=== PATIENT | female | born 1955 | race African-American/Black ===

== ENCOUNTER 2019-04-12 08:26 | Inpatient (IN) ==
[2019-04-12] MEDS ORDERED: ALUM/MAG/SIMETH/LIDO VISC 1:1 30 ML BOTTLE PO STA (09:43)
[2019-04-12] MEDS ORDERED: ASPIRIN 325 MG TABLET PO STA (09:43)
[2019-04-12] MEDS ORDERED: NITROGLYCERIN 2% OINT 1 INCH/GM PACK TOP STA (09:43)
[2019-04-12] MEDS ORDERED: ONDANSETRON 4 MG/2 ML VIAL IV STA (09:43)
[2019-04-12 09:56] LABS: Basophils # 0.1 10*3/uL (0.0-0.2); Basophils % 0.7 % (0.0-0.8); Eosinophils # 0.1 10*3/uL (0.0-0.87); Eosinophils % 1.5 % (0.00-10.9); Hematocrit 35.1 VOL% (35.7-47.0); Hemoglobin 11.7 GM/DL (12.0-16.0); Immature Granulocytes % 0.3 %; Immature Granulocytes Absolute 0.02 #; Lymphocytes # 2.1 10*3/uL (1.4-4.0); Lymphocytes % 30.6 % (21.3-54.2); Mean Corpuscular HGB Conc 33.3 GM/DL (32-36); Mean Corpuscular Volume 90.5 FL (87-102); Mean Platelet Volume 9.4 FL (9.6-12.0); Monocytes % 10.9 % (1.7-12.7); Platelet Count 278 T/CUMM (130-400); Red Blood Count 3.88 MC/CUMM (3.8-5.5); Red Cell Distribution Width 12.5 % (9.3-17.3); White Blood Count 6.8 T/CUMM (4-12)
[2019-04-12 10:05] LABS: PT Patient Result 10.7 SECS (9.6-12.2)
[2019-04-12 10:39] LABS: Albumin 3.6 G/DL (3.4-5.0); Bilirubin,Total 0.5 MG/DL (0.2-1.0); Thyroid Stimulating Hormone 45.8 uIU/ml (0.358-3.74); Total Protein 8.2 G/DL (6.4-8.3)
[2019-04-12 10:43] LABS: Calcium 5.3 MG/DL (8.5-10.1)
[2019-04-12] MEDS ORDERED: CALCIUM GLUCONATE 1,000 MG in SODIUM CHLORIDE 0.9% 100 ML IV ONE (10:46)
[2019-04-12] MEDS ORDERED: MAGNESIUM SULF RIDER 2 GM in PREMIX 1 EACH IV STA (10:46)
[2019-04-12] MEDS ORDERED: CALCIUM GLUCONATE 1,000 MG/10 ML VIAL IV ONE (10:53)
[2019-04-12 10:59] LABS: Apearance,Urine CLEAR (Clear); Urine Color Yellow (Yellow)
[2019-04-12 11:00] LABS: Bacteria,Urine Occasional /HPF (Few); Bilirubin,Urine Negative (Negative); Blood, Urine Negative (Negative); Glucose,Urine (UA) Negative (Negative); Ketones,Urine Negative (Negative); Mucus,Urine Occasional /LPF (Occasional); Nitrite,Urine Negative (Negative); Protein,Urine Negative; Squamous Epithelial Cell,Urine Occasional /HPF (0-10); Urine Urobilinogen < 2.0 EU/DL (0.2-1.0); WBC,Urine <1 /HPF (0-6)
[2019-04-12 11:05] LABS: Barbiturates Screen,Urine Negative (Negative); Benzodiazepines Screen,Urine Negative (Negative); Cannabinoid Screen,Urine Positive (Negative); Opiate Screen,Urine Negative (Negative); Phencyclidine Screen,Urine Negative (Negative)
[2019-04-12] MEDS ORDERED: MORPHINE 4 MG/1 ML VIAL IV PRN (13:08)
[2019-04-12] MEDS ORDERED: ACETAMINOPHEN 325 MG TABLET PO PRN (13:08)
[2019-04-12] MEDS ORDERED: GLUCAGON 1 MG VIAL IM PRN (13:08)
[2019-04-12] MEDS ORDERED: ONDANSETRON 4 MG/2 ML VIAL IV PRN (13:08)
[2019-04-12] MEDS ORDERED: DEXTROSE 50% 25 GM/50 ML VIAL IV PRN (13:08)
[2019-04-12] MEDS: NITROGLYCERIN 2% OINT 1 INCH/GM PACK TOP SCH ×2 (13:27→17:53)
[2019-04-12] MEDS: INSULIN REGULAR 100 UNIT/ML SUBCUT SCH ×2 (13:27→17:50)
[2019-04-12] MEDS ORDERED: MAGNESIUM SULF RIDER 2 GM in PREMIX 1 EACH IV ONE (15:29)
[2019-04-12] MEDS: SODIUM CHLORIDE 0.9% 1,000 ML IV SCH (15:32)
[2019-04-12] MEDS: metFORMIN 500 MG TABLET PO SCH (20:08)
[2019-04-12] MEDS: DOCUSATE SODIUM 100 MG CAPSULE PO SCH (20:09)
[2019-04-12] MEDS: ENOXAPARIN 80 MG/0.8 ML SYRINGE SUBCUT SCH (20:09)
[2019-04-13] MEDS: INSULIN REGULAR 100 UNIT/ML SUBCUT SCH ×4 (00:43→17:33)
[2019-04-13] MEDS: NITROGLYCERIN 2% OINT 1 INCH/GM PACK TOP SCH ×4 (00:48→18:55)
[2019-04-13 05:57] LABS: Basophils # 0.1 10*3/uL (0.0-0.2); Basophils % 0.7 % (0.0-0.8); Eosinophils # 0.2 10*3/uL (0.0-0.87); Eosinophils % 2.3 % (0.00-10.9); Hematocrit 31.1 VOL% (35.7-47.0); Hemoglobin 10.2 GM/DL (12.0-16.0); Immature Granulocytes % 0.3 %; Immature Granulocytes Absolute 0.02 #; Lymphocytes # 1.8 10*3/uL (1.4-4.0); Lymphocytes % 24.1 % (21.3-54.2); Mean Corpuscular HGB Conc 32.8 GM/DL (32-36); Mean Corpuscular Volume 92.3 FL (87-102); Mean Platelet Volume 9.4 FL (9.6-12.0); Monocytes % 12.7 % (1.7-12.7); Neutrophils % 59.9 % (38.7-73.9); Platelet Count 263 T/CUMM (130-400); Red Blood Count 3.37 MC/CUMM (3.8-5.5); Red Cell Distribution Width 12.4 % (9.3-17.3); White Blood Count 7.4 T/CUMM (4-12)
[2019-04-13 06:40] LABS: Alanine Aminotransferase 11 U/L (13-56); Albumin 2.7 G/DL (3.4-5.0); Alkaline Phosphatase 89 U/L (45-117); Aspartate Amino Transferase 16 U/L (0-37); Bilirubin,Total < 0.39 MG/DL (0.2-1.0); Blood Urea Nitrogen 18 MG/DL (7-18); Estimated Glom Filtration Rate 53 ML/MIN; Glucose 124 MG/DL (74-106); HDL Cholesterol 36 MG/DL (40-60); Osmolality,Calculated 275.8 MOS/KG (273-304); Risk Ratio 6.17; Total Protein 7.1 G/DL (6.4-8.3); Triglycerides 112 MG/DL (2-150); VLDL CHOLESTEROL 22.4 MG/DL
[2019-04-13 06:44] LABS: Calcium 5.7 MG/DL (8.5-10.1)
[2019-04-13] MEDS ORDERED: CALCIUM (CARBONATE)/VITAMIN D 600 MG-400 UNIT TABLET PO SCH (09:00)
[2019-04-13] MEDS ORDERED: SIMVASTATIN 20 MG TABLET PO SCH (09:00)
[2019-04-13] MEDS ORDERED: LEVOTHYROXINE 112 MCG TABLET PO SCH (09:00)
[2019-04-13] MEDS: CYANOCOBALAMIN 500 MCG TABLET PO SCH (09:03)
[2019-04-13] MEDS: SODIUM CHLORIDE 0.9% 1,000 ML IV SCH ×2 (09:04→20:45)
[2019-04-13] MEDS: metFORMIN 500 MG TABLET PO SCH ×2 (09:04→20:46)
[2019-04-13] MEDS: ENOXAPARIN 80 MG/0.8 ML SYRINGE SUBCUT SCH ×2 (09:04→20:45)
[2019-04-13] MEDS: LEVOTHYROXINE 137 MCG TABLET PO SCH (09:04)
[2019-04-13] MEDS: LOSARTAN 50 MG TABLET PO SCH (09:04)
[2019-04-13] MEDS: ASPIRIN EC 325 MG TABLET PO SCH (09:04)
[2019-04-13] MEDS: DOCUSATE SODIUM 100 MG CAPSULE PO SCH ×2 (09:04→20:47)
[2019-04-13] MEDS: PANTOPRAZOLE 40 MG VIAL IV SCH (09:05)
[2019-04-13] MEDS: CALCIUM (CARBONATE)/VITAMIN D 600 MG-400 UNIT TABLET PO SCH (20:46)
[2019-04-14] MEDS: INSULIN REGULAR 100 UNIT/ML SUBCUT SCH ×4 (01:07→18:19)
[2019-04-14] MEDS: NITROGLYCERIN 2% OINT 1 INCH/GM PACK TOP SCH ×2 (01:12→06:33)
[2019-04-14 05:42] LABS: Albumin 2.7 G/DL (3.4-5.0); Bilirubin,Total 1.1 MG/DL (0.2-1.0); Osmolality,Calculated 282.3 MOS/KG (273-304)
[2019-04-14 05:45] LABS: Calcium 5.5 MG/DL (8.5-10.1)
[2019-04-14 05:47] LABS: Parathyroid Hormone Intact 21.6 PG/ML (18.4-80.1)
[2019-04-14] MEDS ORDERED: CALCIUM GLUCONATE 1,000 MG in SODIUM CHLORIDE 0.9% 100 ML IV ONE (06:16)
[2019-04-14] MEDS ORDERED: ENOXAPARIN 40 MG/0.4 ML SYRINGE SUBCUT SCH (09:00)
[2019-04-14] MEDS ORDERED: METOPROLOL TARTRATE 25 MG TABLET PO SCH (09:00)
[2019-04-14] MEDS: SODIUM CHLORIDE 0.9% 1,000 ML IV SCH (10:55)
[2019-04-14] MEDS: PANTOPRAZOLE 40 MG VIAL IV SCH (13:44)
[2019-04-14] MEDS: DOCUSATE SODIUM 100 MG CAPSULE PO SCH (13:44)
[2019-04-14] MEDS: metFORMIN 500 MG TABLET PO SCH (13:44)
[2019-04-14] MEDS: ASPIRIN EC 325 MG TABLET PO SCH (13:44)
[2019-04-14] MEDS: LOSARTAN 50 MG TABLET PO SCH (13:44)
[2019-04-14] MEDS: CALCIUM (CARBONATE)/VITAMIN D 600 MG-400 UNIT TABLET PO SCH (13:44)
[2019-04-14] MEDS: LEVOTHYROXINE 137 MCG TABLET PO SCH (13:45)
[2019-04-14] MEDS: CYANOCOBALAMIN 500 MCG TABLET PO SCH (13:45)
[2019-04-14 17:05] VITALS: BP 193/89
[2019-04-14] MEDS ORDERED: SIMVASTATIN 20 MG TABLET PO SCH (21:00)
== END 2019-04-14 18:34 | disposition home or self-care (01) | DRG 305 ==
LOC: N.ED 08:26 → N.EDINP 11:24 → N.TELES 12:02
PROVIDERS: ADMIT Internal Medicine; ATTEND Internal Medicine

== ENCOUNTER 2022-05-12 17:21 | Inpatient (IN) ==
[2022-05-12] MEDS ORDERED: ALBUTEROL/IPRATROPIUM 3 ML NEB RESP TX STA (19:11)
[2022-05-12] MEDS ORDERED: ONDANSETRON ODT 4 MG TABLET PO STA (19:11)
[2022-05-12] MEDS ORDERED: methylPREDNISolone SOD SUC 125 MG/2 ML VIAL IV STA (19:11)
[2022-05-12] MEDS ORDERED: AZITHROMYCIN INJ 500 MG in SODIUM CHLORIDE 0.9% 250 ML IV STA (19:14)
[2022-05-12 19:22] LABS: Basophils % 0.5 % (0.0-0.8); Eosinophils # 0.1 10*3/uL (0.0-0.87); Eosinophils % 1.2 % (0.00-10.9); Hemoglobin 10.9 GM/DL (12.0-16.0); Immature Granulocytes % 0.9 %; Immature Granulocytes Absolute 0.07 #; Lymphocytes # 2.5 10*3/uL (1.4-4.0); Lymphocytes % 30.7 % (21.3-54.2); Mean Corpuscular HGB Conc 34.1 GM/DL (32-36); Mean Corpuscular Volume 90.1 FL (87-102); Mean Platelet Volume 9.1 FL (9.6-12.0); Monocytes # 0.9 10*3/uL (0.11-0.8); Monocytes % 10.5 % (1.7-12.7); Neutrophils % 56.2 % (38.7-73.9); Platelet Count 279 T/CUMM (130-400); Red Blood Count 3.55 MC/CUMM (3.8-5.5); Red Cell Distribution Width 11.9 % (9.3-17.3); White Blood Count 8.1 T/CUMM (4-12)
[2022-05-12 20:04] LABS: Alanine Aminotransferase 17 U/L (13-56); Albumin 3.7 G/DL (3.4-5.0); Alkaline Phosphatase 70 U/L (45-117); Aspartate Amino Transferase 42 U/L (0-37); Blood Urea Nitrogen 31 MG/DL (7-18); Carbon Dioxide 27 MMOL/L (21-32); Chloride 99 MMOL/L (98-107); Glucose 211 MG/DL (74-106); Osmolality,Calculated 285.8 MOS/KG (273-304); Potassium 3.2 MMOL/L (3.5-5.1); Sodium 137 MMOL/L (136-145); Total Protein 8.4 G/DL (6.4-8.2)
[2022-05-12 20:15] LABS: Calcium < 5.0 MG/DL (8.5-10.1)
[2022-05-12] MEDS ORDERED: POTASSIUM CHLORIDE 20 MEQ TABLET PO STA (20:40)
[2022-05-12] MEDS ORDERED: ACETAMINOPHEN 325 MG TABLET PO PRN (20:53)
[2022-05-12] MEDS ORDERED: ONDANSETRON 4 MG/2 ML VIAL IV PRN (20:53)
[2022-05-12] MEDS ORDERED: GLUCAGON 1 MG VIAL IM PRN (20:53)
[2022-05-12] MEDS ORDERED: NITROGLYCERIN SL 0.4 MG TABLET SL PRN (22:06)
[2022-05-13] MEDS: ALBUTEROL/IPRATROPIUM 3 ML NEB RESP TX SCH ×4 (00:42→19:15)
[2022-05-13 06:05] LABS: Basophils % 0.3 % (0.0-0.8); Hematocrit 32.7 VOL% (35.7-47.0); Immature Granulocytes % 1.3 %; Immature Granulocytes Absolute 0.13 #; Lymphocytes # 1.2 10*3/uL (1.4-4.0); Lymphocytes % 11.9 % (21.3-54.2); Mean Corpuscular HGB Conc 33.6 GM/DL (32-36); Mean Corpuscular Volume 91.6 FL (87-102); Monocytes # 0.1 10*3/uL (0.11-0.8); Neutrophils % 85.5 % (38.7-73.9); Platelet Count 267 T/CUMM (130-400); Red Blood Count 3.57 MC/CUMM (3.8-5.5); Red Cell Distribution Width 11.9 % (9.3-17.3); White Blood Count 10.1 T/CUMM (4-12)
[2022-05-13 06:15] LABS: PT Patient Result 11.1 SECS (10.1-12.1)
[2022-05-13 07:19] LABS: Alanine Aminotransferase 15 U/L (13-56); Albumin 3.4 G/DL (3.4-5.0); Alkaline Phosphatase 59 U/L (45-117); Aspartate Amino Transferase 43 U/L (0-37); Blood Urea Nitrogen 30 MG/DL (7-18); Carbon Dioxide 20 MMOL/L (21-32); Chloride 99 MMOL/L (98-107); Cholesterol 168 MG/DL (50-200); Glucose 300 MG/DL (74-106); HDL Cholesterol 29 MG/DL (40-60); Osmolality,Calculated 284.2 MOS/KG (273-304); Potassium 4.2 MMOL/L (3.5-5.1); Risk Ratio 5.79; Sodium 134 MMOL/L (136-145); Total Protein 8.8 G/DL (6.4-8.2); Triglycerides 168 MG/DL (2-150); VLDL Cholesterol 33.6 MG/DL
[2022-05-13 07:22] LABS: Calcium < 5.0 MG/DL (8.5-10.1)
[2022-05-13 07:31] LABS: Lymphocytes 11 % (20-55); Microcytosis Slight; Total Cells Counted 100
[2022-05-13] MEDS: ASPIRIN EC 325 MG TABLET PO SCH (08:50)
[2022-05-13] MEDS: PANTOPRAZOLE 40 MG TABLET PO SCH (08:50)
[2022-05-13] MEDS: ENOXAPARIN 40 MG/0.4 ML SYRINGE SUBCUT SCH (08:51)
[2022-05-13] MEDS: SODIUM CHLORIDE 0.9% 1,000 ML IV SCH (16:45)
[2022-05-13] MEDS: AZITHROMYCIN INJ 500 MG in SODIUM CHLORIDE 0.9% 250 ML IV SCH (16:45)
[2022-05-13] MEDS: methylPREDNISolone SOD SUC 40 MG/1 ML VIAL IV SCH ×2 (16:46→23:39)
[2022-05-13] MEDS ORDERED: amLODIPine 5 MG TABLET PO ONE (16:49)
[2022-05-13] MEDS: LEVOTHYROXINE 150 MCG TABLET PO SCH (17:23)
[2022-05-13] MEDS: ROSUVASTATIN 20 MG TABLET PO SCH (21:06)
[2022-05-13] MEDS: cloNIDine 0.1 MG TABLET PO SCH (21:06)
[2022-05-14] MEDS: ALBUTEROL/IPRATROPIUM 3 ML NEB RESP TX SCH ×4 (00:04→20:07)
[2022-05-14 03:47] LABS: Basophils % 0.2 % (0.0-0.8); Hematocrit 28.5 VOL% (35.7-47.0); Hemoglobin 9.7 GM/DL (12.0-16.0); Immature Granulocytes % 1.8 %; Immature Granulocytes Absolute 0.22 #; Lymphocytes # 1.1 10*3/uL (1.4-4.0); Lymphocytes % 9.3 % (21.3-54.2); Mean Corpuscular Volume 91.6 FL (87-102); Monocytes # 0.3 10*3/uL (0.11-0.8); Monocytes % 2.7 % (1.7-12.7); Platelet Count 269 T/CUMM (130-400); Red Blood Count 3.11 MC/CUMM (3.8-5.5); White Blood Count 12.1 T/CUMM (4-12)
[2022-05-14] MEDS: SODIUM CHLORIDE 0.9% 1,000 ML IV SCH ×4 (04:54→22:29)
[2022-05-14] MEDS: LEVOTHYROXINE 150 MCG TABLET PO SCH (05:46)
[2022-05-14] MEDS: methylPREDNISolone SOD SUC 40 MG/1 ML VIAL IV SCH ×2 (06:24→16:08)
[2022-05-14 07:26] LABS: Blood Urea Nitrogen 33 MG/DL (7-18); Carbon Dioxide 19 MMOL/L (21-32); Chloride 105 MMOL/L (98-107); Glucose 325 MG/DL (74-106); Potassium 4.4 MMOL/L (3.5-5.1); Sodium 136 MMOL/L (136-145)
[2022-05-14 07:29] LABS: Calcium < 5.0 MG/DL (8.5-10.1)
[2022-05-14] MEDS ORDERED: MAGNESIUM SULF RIDER 2 GM/50 ML PREMIX IV ONE ×2 (07:49→11:22)
[2022-05-14] MEDS ORDERED: CALCIUM (CARBONATE)/VITAMIN D 600 MG-400 UNIT TABLET PO SCH (08:00)
[2022-05-14] MEDS: AZITHROMYCIN INJ 500 MG in SODIUM CHLORIDE 0.9% 250 ML IV SCH (08:32)
[2022-05-14] MEDS: ASPIRIN EC 325 MG TABLET PO SCH (08:33)
[2022-05-14] MEDS: CYANOCOBALAMIN 500 MCG TABLET PO SCH (08:33)
[2022-05-14] MEDS: amLODIPine 5 MG TABLET PO SCH (08:34)
[2022-05-14] MEDS: MAGNESIUM OXIDE 400 MG TABLET PO SCH (08:34)
[2022-05-14] MEDS: CHOLECALCIFEROL 5,000 UNIT TABLET PO SCH (08:34)
[2022-05-14] MEDS: FERROUS SULFATE 325 MG TABLET PO SCH (08:34)
[2022-05-14] MEDS: LORATADINE 10 MG TABLET PO SCH (08:35)
[2022-05-14] MEDS: PANTOPRAZOLE 40 MG TABLET PO SCH (08:35)
[2022-05-14] MEDS: ENOXAPARIN 40 MG/0.4 ML SYRINGE SUBCUT SCH (08:35)
[2022-05-14] MEDS ORDERED: GLIMEPIRIDE 2 MG TABLET PO SCH (09:00)
[2022-05-14] MEDS ORDERED: PIOGLITAZONE 15 MG TABLET PO ONE (11:26)
[2022-05-14] MEDS ORDERED: CALCIUM GLUCONATE RIDER 2,000 MG/100 ML PREMIX IV ONE (11:28)
[2022-05-14] MEDS: INSULIN REGULAR 100 UNIT/ML SUBCUT SCH ×3 (11:48→22:29)
[2022-05-14 14:25] LABS: Bacteria,Urine Occasional /HPF (Few); Bilirubin,Urine Negative (Negative); Blood, Urine Trace mg/dL (Negative); Glucose,Urine (UA) 250 mg/dL (Negative); Granular Casts,Urine 4 /LPF (0-1); Hyaline Casts,Urine 3 /LPF (0-3); Ketones,Urine Negative (Negative); Mucus,Urine Occasional /LPF (Occasional); Nitrite,Urine Negative (Negative); Protein,Urine 30 mg/dL (Negative); RBC,Urine 2 /HPF (0-4); Squamous Epithelial Cell,Urine Occasional /HPF (0-10); Urine Appearance Clear (Clear); Urine Color Yellow (Yellow); Urine Specific Gravity 1.025 (1.001-1.035); Urine Urobilinogen 0.2 eU/dL (<2.0)
[2022-05-14 14:51] LABS: Barbiturates Screen,Urine Negative (Negative); Benzodiazepines Screen,Urine Negative (Negative); Cannabinoid Screen,Urine Positive (Negative); Opiate Screen,Urine Negative (Negative); Phencyclidine Screen,Urine Negative (Negative)
[2022-05-14 15:29] LABS: Blood Urea Nitrogen 31 MG/DL (7-18); Carbon Dioxide 22 MMOL/L (21-32); Chloride 103 MMOL/L (98-107); Glucose 370 MG/DL (74-106); Potassium 3.9 MMOL/L (3.5-5.1); Sodium 136 MMOL/L (136-145)
[2022-05-14 15:32] LABS: Calcium < 5.0 MG/DL (8.5-10.1)
[2022-05-14] MEDS: GLIMEPIRIDE 2 MG TABLET PO SCH (16:08)
[2022-05-14] MEDS: ROSUVASTATIN 20 MG TABLET PO SCH (21:59)
[2022-05-14] MEDS: cloNIDine 0.1 MG TABLET PO SCH (21:59)
[2022-05-15] MEDS: methylPREDNISolone SOD SUC 40 MG/1 ML VIAL IV SCH ×3 (00:33→22:10)
[2022-05-15] MEDS: ALBUTEROL/IPRATROPIUM 3 ML NEB RESP TX SCH ×4 (00:39→19:44)
[2022-05-15] MEDS: LEVOTHYROXINE 150 MCG TABLET PO SCH (05:39)
[2022-05-15 05:57] LABS: Basophils % 0.1 % (0.0-0.8); Hematocrit 28.2 VOL% (35.7-47.0); Hemoglobin 9.4 GM/DL (12.0-16.0); Immature Granulocytes % 2.7 %; Immature Granulocytes Absolute 0.44 #; Lymphocytes # 1.1 10*3/uL (1.4-4.0); Lymphocytes % 6.6 % (21.3-54.2); Mean Corpuscular HGB Conc 33.3 GM/DL (32-36); Mean Corpuscular Volume 91.9 FL (87-102); Mean Platelet Volume 8.9 FL (9.6-12.0); Monocytes # 0.6 10*3/uL (0.11-0.8); Monocytes % 3.9 % (1.7-12.7); Neutrophils % 86.7 % (38.7-73.9); Platelet Count 334 T/CUMM (130-400); Red Blood Count 3.07 MC/CUMM (3.8-5.5); Red Cell Distribution Width 12.2 % (9.3-17.3); White Blood Count 16.3 T/CUMM (4-12)
[2022-05-15 06:23] LABS: Osmolality,Calculated 289.8 MOS/KG (273-304); Potassium 4.2 MMOL/L (3.5-5.1)
[2022-05-15 06:25] LABS: Calcium 5.1 MG/DL (8.5-10.1)
[2022-05-15 06:32] LABS: Alanine Aminotransferase 14 U/L (13-56); Albumin 2.8 G/DL (3.4-5.0); Alkaline Phosphatase 66 U/L (45-117); Aspartate Amino Transferase 27 U/L (0-37); Bilirubin,Total < 0.39 MG/DL (0.20-1.00); Blood Urea Nitrogen 34 MG/DL (7-18); Carbon Dioxide 23 MMOL/L (21-32); Chloride 109 MMOL/L (98-107); Glucose 239 MG/DL (74-106); Osmolality,Calculated 294.4 MOS/KG (273-304); Potassium 4.3 MMOL/L (3.5-5.1); Sodium 140 MMOL/L (136-145); Total Protein 7.5 G/DL (6.4-8.2)
[2022-05-15 06:37] LABS: Calcium 5.1 MG/DL (8.5-10.1)
[2022-05-15] MEDS: SODIUM CHLORIDE 0.9% 1,000 ML IV SCH ×3 (08:29→17:14)
[2022-05-15] MEDS: INSULIN REGULAR 100 UNIT/ML SUBCUT SCH ×4 (09:56→22:19)
[2022-05-15] MEDS: ENOXAPARIN 40 MG/0.4 ML SYRINGE SUBCUT SCH (09:56)
[2022-05-15] MEDS: AZITHROMYCIN INJ 500 MG in SODIUM CHLORIDE 0.9% 250 ML IV SCH (09:56)
[2022-05-15] MEDS: PIOGLITAZONE 15 MG TABLET PO SCH (09:57)
[2022-05-15] MEDS: amLODIPine 5 MG TABLET PO SCH (09:57)
[2022-05-15] MEDS: CYANOCOBALAMIN 500 MCG TABLET PO SCH (09:57)
[2022-05-15] MEDS: FERROUS SULFATE 325 MG TABLET PO SCH (09:57)
[2022-05-15] MEDS: ASPIRIN EC 325 MG TABLET PO SCH (09:57)
[2022-05-15] MEDS: LORATADINE 10 MG TABLET PO SCH (09:57)
[2022-05-15] MEDS: PANTOPRAZOLE 40 MG TABLET PO SCH (09:57)
[2022-05-15] MEDS: MAGNESIUM OXIDE 400 MG TABLET PO SCH (09:57)
[2022-05-15] MEDS: GLIMEPIRIDE 2 MG TABLET PO SCH ×2 (09:58→17:46)
[2022-05-15] MEDS: CHOLECALCIFEROL 5,000 UNIT TABLET PO SCH (09:58)
[2022-05-15] MEDS ORDERED: LEVOTHYROXINE 25 MCG TABLET PO ONE (17:00)
[2022-05-15] MEDS ORDERED: CALCIUM GLUCONATE RIDER 2,000 MG/100 ML PREMIX IV ONE (17:00)
[2022-05-15] MEDS: CALCIUM CARBONATE CHEW 500 MG TABLET PO SCH (22:09)
[2022-05-15] MEDS: cloNIDine 0.1 MG TABLET PO SCH (22:10)
[2022-05-15] MEDS: ROSUVASTATIN 20 MG TABLET PO SCH (22:10)
[2022-05-15] MEDS: INSULIN GLARGINE 100 UNIT/ML SUBCUT SCH (22:23)
[2022-05-16] MEDS: ALBUTEROL/IPRATROPIUM 3 ML NEB RESP TX SCH ×4 (00:07→19:43)
[2022-05-16] MEDS: SODIUM CHLORIDE 0.9% 1,000 ML IV SCH ×4 (02:03→23:02)
[2022-05-16 05:35] LABS: Basophils % 0.1 % (0.0-0.8); Hematocrit 26.7 VOL% (35.7-47.0); Hemoglobin 8.9 GM/DL (12.0-16.0); Immature Granulocytes Absolute 0.69 #; Lymphocytes # 0.9 10*3/uL (1.4-4.0); Lymphocytes % 6.3 % (21.3-54.2); Mean Corpuscular HGB Conc 33.3 GM/DL (32-36); Mean Corpuscular Volume 92.7 FL (87-102); Mean Platelet Volume 8.7 FL (9.6-12.0); Monocytes # 0.8 10*3/uL (0.11-0.8); Monocytes % 5.6 % (1.7-12.7); Platelet Count 317 T/CUMM (130-400); Red Blood Count 2.88 MC/CUMM (3.8-5.5); Red Cell Distribution Width 12.4 % (9.3-17.3); White Blood Count 13.9 T/CUMM (4-12)
[2022-05-16] MEDS: LEVOTHYROXINE 50 MCG TABLET PO SCH (05:52)
[2022-05-16 05:56] LABS: Osmolality,Calculated 295.1 MOS/KG (273-304); Potassium 4.2 MMOL/L (3.5-5.1)
[2022-05-16 05:57] LABS: Hypochromia Slight; Lymphocytes 4 % (20-55); Microcytosis Slight; Platelet Estimate Adequate; Total Cells Counted 100
[2022-05-16 06:06] LABS: Calcium 5.2 MG/DL (8.5-10.1)
[2022-05-16] MEDS ORDERED: LEVOTHYROXINE 175 MCG TABLET PO SCH (06:30)
[2022-05-16] MEDS: CYANOCOBALAMIN 500 MCG TABLET PO SCH (09:27)
[2022-05-16] MEDS: PANTOPRAZOLE 40 MG TABLET PO SCH (09:27)
[2022-05-16] MEDS: LORATADINE 10 MG TABLET PO SCH (09:27)
[2022-05-16] MEDS: GLIMEPIRIDE 2 MG TABLET PO SCH ×2 (09:27→17:28)
[2022-05-16] MEDS: PIOGLITAZONE 15 MG TABLET PO SCH (09:27)
[2022-05-16] MEDS: CALCIUM CARBONATE CHEW 500 MG TABLET PO SCH ×2 (09:27→20:50)
[2022-05-16] MEDS: ASPIRIN EC 325 MG TABLET PO SCH (09:28)
[2022-05-16] MEDS: FERROUS SULFATE 325 MG TABLET PO SCH ×2 (09:28→17:28)
[2022-05-16] MEDS: MAGNESIUM OXIDE 400 MG TABLET PO SCH (09:28)
[2022-05-16] MEDS: amLODIPine 5 MG TABLET PO SCH (09:28)
[2022-05-16] MEDS: methylPREDNISolone SOD SUC 40 MG/1 ML VIAL IV SCH ×2 (09:29→20:51)
[2022-05-16] MEDS: INSULIN REGULAR 100 UNIT/ML SUBCUT SCH ×4 (09:35→20:47)
[2022-05-16] MEDS: AZITHROMYCIN INJ 500 MG in SODIUM CHLORIDE 0.9% 250 ML IV SCH (09:36)
[2022-05-16] MEDS: CHOLECALCIFEROL 5,000 UNIT TABLET PO SCH (09:37)
[2022-05-16] MEDS ORDERED: CALCIUM GLUCONATE RIDER 2,000 MG/100 ML PREMIX IV ONE (12:00)
[2022-05-16] MEDS: ENOXAPARIN 40 MG/0.4 ML SYRINGE SUBCUT SCH (12:46)
[2022-05-16] MEDS: NICOTINE 21 MG/24 HR PATCH TRANSDERM SCH (17:31)
[2022-05-16] MEDS: ROSUVASTATIN 20 MG TABLET PO SCH (20:50)
[2022-05-16] MEDS: cloNIDine 0.1 MG TABLET PO SCH (20:50)
[2022-05-16] MEDS: INSULIN GLARGINE 100 UNIT/ML SUBCUT SCH (20:51)
[2022-05-17] MEDS: ALBUTEROL/IPRATROPIUM 3 ML NEB RESP TX SCH ×4 (01:32→20:05)
[2022-05-17 04:31] LABS: Basophils % 0.3 % (0.0-0.8); Hemoglobin 8.5 GM/DL (12.0-16.0); Immature Granulocytes % 4.5 %; Immature Granulocytes Absolute 0.62 #; Lymphocytes # 1.3 10*3/uL (1.4-4.0); Lymphocytes % 9.3 % (21.3-54.2); Mean Corpuscular HGB Conc 32.7 GM/DL (32-36); Mean Corpuscular Volume 94.2 FL (87-102); Mean Platelet Volume 8.8 FL (9.6-12.0); Monocytes # 0.7 10*3/uL (0.11-0.8); Monocytes % 5.1 % (1.7-12.7); Neutrophils % 80.8 % (38.7-73.9); Platelet Count 320 T/CUMM (130-400); Red Blood Count 2.76 MC/CUMM (3.8-5.5); Red Cell Distribution Width 12.6 % (9.3-17.3); White Blood Count 13.8 T/CUMM (4-12)
[2022-05-17 04:59] LABS: Osmolality,Calculated 301.1 MOS/KG (273-304); Potassium 4.7 MMOL/L (3.5-5.1)
[2022-05-17 05:02] LABS: Calcium 5.2 MG/DL (8.5-10.1)
[2022-05-17 05:04] LABS: Lymphocytes 12 % (20-55); Metamyelocytes 1 %; Total Cells Counted 100
[2022-05-17 05:05] LABS: Microcytosis Slight
[2022-05-17] MEDS: LEVOTHYROXINE 50 MCG TABLET PO SCH (05:51)
[2022-05-17] MEDS: ENOXAPARIN 40 MG/0.4 ML SYRINGE SUBCUT SCH (09:11)
[2022-05-17] MEDS: ASPIRIN EC 81 MG TABLET PO SCH (10:22)
[2022-05-17] MEDS: MAGNESIUM OXIDE 400 MG TABLET PO SCH (10:22)
[2022-05-17] MEDS: CHOLECALCIFEROL 5,000 UNIT TABLET PO SCH ×2 (10:22→20:38)
[2022-05-17] MEDS: FERROUS SULFATE 325 MG TABLET PO SCH ×2 (10:22→16:13)
[2022-05-17] MEDS: PIOGLITAZONE 15 MG TABLET PO SCH (10:22)
[2022-05-17] MEDS: CYANOCOBALAMIN 500 MCG TABLET PO SCH (10:22)
[2022-05-17] MEDS: CALCIUM CARBONATE CHEW 500 MG TABLET PO SCH ×2 (10:22→20:38)
[2022-05-17] MEDS: amLODIPine 5 MG TABLET PO SCH (10:23)
[2022-05-17] MEDS: LORATADINE 10 MG TABLET PO SCH (10:23)
[2022-05-17] MEDS: GLIMEPIRIDE 2 MG TABLET PO SCH ×2 (10:23→16:14)
[2022-05-17] MEDS: PANTOPRAZOLE 40 MG TABLET PO SCH (10:24)
[2022-05-17] MEDS: methylPREDNISolone SOD SUC 40 MG/1 ML VIAL IV SCH ×2 (10:24→20:39)
[2022-05-17] MEDS: NICOTINE 21 MG/24 HR PATCH TRANSDERM SCH (10:25)
[2022-05-17] MEDS: AZITHROMYCIN INJ 500 MG in SODIUM CHLORIDE 0.9% 250 ML IV SCH (10:30)
[2022-05-17] MEDS: INSULIN REGULAR 100 UNIT/ML SUBCUT SCH ×4 (10:36→20:32)
[2022-05-17] MEDS: CALCIUM GLUCONATE RIDER 2,000 MG/100 ML PREMIX IV SCH (13:00)
[2022-05-17 14:26] LABS: Total Volume 650 mL
[2022-05-17] MEDS ORDERED: MAGNESIUM SULF RIDER 2 GM/50 ML PREMIX IV ONE (15:04)
[2022-05-17] MEDS: SODIUM CHLORIDE 0.9% 1,000 ML IV SCH ×2 (15:21→22:11)
[2022-05-17 15:56] LABS: Total Volume 650 mL
[2022-05-17] MEDS: ROSUVASTATIN 20 MG TABLET PO SCH (20:38)
[2022-05-17] MEDS: cloNIDine 0.1 MG TABLET PO SCH (20:38)
[2022-05-17] MEDS: INSULIN GLARGINE 100 UNIT/ML SUBCUT SCH (20:39)
[2022-05-18] MEDS: ALBUTEROL/IPRATROPIUM 3 ML NEB RESP TX SCH ×4 (00:58→18:57)
[2022-05-18] MEDS: SODIUM CHLORIDE 0.9% 1,000 ML IV SCH ×3 (02:59→20:09)
[2022-05-18 05:48] LABS: Basophils % 0.2 % (0.0-0.8); Hematocrit 24.6 VOL% (35.7-47.0); Hemoglobin 8.2 GM/DL (12.0-16.0); Immature Granulocytes % 4.4 %; Immature Granulocytes Absolute 0.69 #; Lymphocytes # 1.5 10*3/uL (1.4-4.0); Lymphocytes % 9.8 % (21.3-54.2); Mean Corpuscular HGB Conc 33.3 GM/DL (32-36); Mean Corpuscular Volume 93.5 FL (87-102); Mean Platelet Volume 8.6 FL (9.6-12.0); Monocytes # 0.7 10*3/uL (0.11-0.8); Monocytes % 4.6 % (1.7-12.7); Platelet Count 315 T/CUMM (130-400); Red Blood Count 2.63 MC/CUMM (3.8-5.5); Red Cell Distribution Width 12.9 % (9.3-17.3); White Blood Count 15.7 T/CUMM (4-12)
[2022-05-18 05:55] LABS: Calcium 5.9 MG/DL (8.5-10.1); Osmolality,Calculated 301.1 MOS/KG (273-304); Potassium 4.9 MMOL/L (3.5-5.1)
[2022-05-18] MEDS: LEVOTHYROXINE 50 MCG TABLET PO SCH (05:56)
[2022-05-18 09:22] LABS: Anisocytosis 1+; Band Neutrophils 1 % (0-10); Lymphocytes 10 % (20-55); Metamyelocytes 2 %; Platelet Estimate Normal; Total Cells Counted 100
[2022-05-18] MEDS: INSULIN REGULAR 100 UNIT/ML SUBCUT SCH ×4 (09:29→20:13)
[2022-05-18] MEDS: CALCIUM GLUCONATE RIDER 2,000 MG/100 ML PREMIX IV SCH (09:34)
[2022-05-18] MEDS: CYANOCOBALAMIN 500 MCG TABLET PO SCH (09:36)
[2022-05-18] MEDS: LORATADINE 10 MG TABLET PO SCH (09:36)
[2022-05-18] MEDS: GLIMEPIRIDE 2 MG TABLET PO SCH ×2 (09:36→16:34)
[2022-05-18] MEDS: CALCIUM CARBONATE CHEW 500 MG TABLET PO SCH ×2 (09:36→20:10)
[2022-05-18] MEDS: FERROUS SULFATE 325 MG TABLET PO SCH ×2 (09:36→16:34)
[2022-05-18] MEDS: NICOTINE 21 MG/24 HR PATCH TRANSDERM SCH (09:36)
[2022-05-18] MEDS: PIOGLITAZONE 15 MG TABLET PO SCH (09:36)
[2022-05-18] MEDS: amLODIPine 5 MG TABLET PO SCH (09:37)
[2022-05-18] MEDS: ENOXAPARIN 40 MG/0.4 ML SYRINGE SUBCUT SCH (09:37)
[2022-05-18] MEDS: PANTOPRAZOLE 40 MG TABLET PO SCH (09:37)
[2022-05-18] MEDS: MAGNESIUM OXIDE 400 MG TABLET PO SCH (09:37)
[2022-05-18] MEDS: ASPIRIN EC 81 MG TABLET PO SCH (09:37)
[2022-05-18] MEDS: CHOLECALCIFEROL 5,000 UNIT TABLET PO SCH ×2 (09:37→20:10)
[2022-05-18] MEDS: methylPREDNISolone SOD SUC 40 MG/1 ML VIAL IV SCH ×2 (09:45→20:12)
[2022-05-18] MEDS: cloNIDine 0.1 MG TABLET PO SCH (20:10)
[2022-05-18] MEDS: ROSUVASTATIN 20 MG TABLET PO SCH (20:10)
[2022-05-18] MEDS: INSULIN GLARGINE 100 UNIT/ML SUBCUT SCH (20:13)
[2022-05-19] MEDS: ALBUTEROL/IPRATROPIUM 3 ML NEB RESP TX SCH ×4 (00:45→18:48)
[2022-05-19 04:57] LABS: Basophils % 0.1 % (0.0-0.8); Hematocrit 23.7 VOL% (35.7-47.0); Hemoglobin 7.7 GM/DL (12.0-16.0); Immature Granulocytes % 3.2 %; Immature Granulocytes Absolute 0.47 #; Lymphocytes # 1.3 10*3/uL (1.4-4.0); Lymphocytes % 8.9 % (21.3-54.2); Mean Corpuscular HGB Conc 32.5 GM/DL (32-36); Mean Platelet Volume 8.7 FL (9.6-12.0); Monocytes # 0.9 10*3/uL (0.11-0.8); Monocytes % 6.1 % (1.7-12.7); Neutrophils % 81.7 % (38.7-73.9); Platelet Count 292 T/CUMM (130-400); Red Blood Count 2.52 MC/CUMM (3.8-5.5); Red Cell Distribution Width 12.9 % (9.3-17.3); White Blood Count 14.9 T/CUMM (4-12)
[2022-05-19 05:10] LABS: Calcium 6.5 MG/DL (8.5-10.1); Potassium 4.9 MMOL/L (3.5-5.1)
[2022-05-19] MEDS: LEVOTHYROXINE 50 MCG TABLET PO SCH (05:55)
[2022-05-19] MEDS: INSULIN REGULAR 100 UNIT/ML SUBCUT SCH ×4 (08:47→21:43)
[2022-05-19] MEDS: ENOXAPARIN 40 MG/0.4 ML SYRINGE SUBCUT SCH (08:48)
[2022-05-19] MEDS: FERROUS SULFATE 325 MG TABLET PO SCH ×2 (08:56→17:02)
[2022-05-19] MEDS: MAGNESIUM OXIDE 400 MG TABLET PO SCH (08:56)
[2022-05-19] MEDS: PANTOPRAZOLE 40 MG TABLET PO SCH (08:57)
[2022-05-19] MEDS: ASPIRIN EC 81 MG TABLET PO SCH (08:57)
[2022-05-19] MEDS: amLODIPine 5 MG TABLET PO SCH (08:57)
[2022-05-19] MEDS: CHOLECALCIFEROL 5,000 UNIT TABLET PO SCH ×2 (08:57→21:37)
[2022-05-19] MEDS: CYANOCOBALAMIN 500 MCG TABLET PO SCH (08:57)
[2022-05-19] MEDS: LORATADINE 10 MG TABLET PO SCH (08:57)
[2022-05-19] MEDS: NICOTINE 21 MG/24 HR PATCH TRANSDERM SCH (08:58)
[2022-05-19] MEDS: CALCIUM CARBONATE CHEW 500 MG TABLET PO SCH ×2 (08:58→21:37)
[2022-05-19] MEDS: SODIUM CHLORIDE 0.9% 1,000 ML IV SCH ×2 (09:00→23:17)
[2022-05-19] MEDS: CALCIUM GLUCONATE RIDER 2,000 MG/100 ML PREMIX IV SCH (09:00)
[2022-05-19] MEDS: methylPREDNISolone SOD SUC 40 MG/1 ML VIAL IV SCH ×2 (09:03→21:38)
[2022-05-19] MEDS: GLIMEPIRIDE 2 MG TABLET PO SCH ×2 (14:15→16:30)
[2022-05-19] MEDS: PIOGLITAZONE 15 MG TABLET PO SCH (16:29)
[2022-05-19] MEDS: cloNIDine 0.1 MG TABLET PO SCH (21:37)
[2022-05-19] MEDS: ROSUVASTATIN 20 MG TABLET PO SCH (21:38)
[2022-05-19] MEDS: INSULIN GLARGINE 100 UNIT/ML SUBCUT SCH (21:41)
[2022-05-20] MEDS: ALBUTEROL/IPRATROPIUM 3 ML NEB RESP TX SCH ×4 (00:28→19:27)
[2022-05-20] MEDS: LEVOTHYROXINE 50 MCG TABLET PO SCH (05:52)
[2022-05-20 05:54] LABS: Calcium 6.8 MG/DL (8.5-10.1); Potassium 5.5 MMOL/L (3.5-5.1)
[2022-05-20] MEDS: INSULIN REGULAR 100 UNIT/ML SUBCUT SCH ×4 (07:30→22:29)
[2022-05-20] MEDS: LORATADINE 10 MG TABLET PO SCH (09:49)
[2022-05-20] MEDS: PIOGLITAZONE 15 MG TABLET PO SCH (09:49)
[2022-05-20] MEDS: CYANOCOBALAMIN 500 MCG TABLET PO SCH (09:49)
[2022-05-20] MEDS: CALCIUM CARBONATE CHEW 500 MG TABLET PO SCH ×3 (09:50→21:59)
[2022-05-20] MEDS: methylPREDNISolone SOD SUC 40 MG/1 ML VIAL IV SCH ×2 (09:50→23:03)
[2022-05-20] MEDS: amLODIPine 5 MG TABLET PO SCH (09:51)
[2022-05-20] MEDS: ASPIRIN EC 81 MG TABLET PO SCH (09:51)
[2022-05-20] MEDS: GLIMEPIRIDE 2 MG TABLET PO SCH ×2 (09:51→16:56)
[2022-05-20] MEDS: FERROUS SULFATE 325 MG TABLET PO SCH ×2 (09:51→16:59)
[2022-05-20] MEDS: MAGNESIUM OXIDE 400 MG TABLET PO SCH (09:52)
[2022-05-20] MEDS: PANTOPRAZOLE 40 MG TABLET PO SCH (09:52)
[2022-05-20] MEDS: CHOLECALCIFEROL 5,000 UNIT TABLET PO SCH ×2 (09:52→21:59)
[2022-05-20] MEDS: NICOTINE 21 MG/24 HR PATCH TRANSDERM SCH (09:53)
[2022-05-20] MEDS: ENOXAPARIN 40 MG/0.4 ML SYRINGE SUBCUT SCH (09:54)
[2022-05-20] MEDS: SODIUM CHLORIDE 0.9% 1,000 ML IV SCH ×2 (10:17→19:58)
[2022-05-20] MEDS: CALCIUM GLUCONATE RIDER 2,000 MG/100 ML PREMIX IV SCH (10:23)
[2022-05-20] MEDS: cloNIDine 0.1 MG TABLET PO SCH (21:59)
[2022-05-20] MEDS: ROSUVASTATIN 20 MG TABLET PO SCH (22:00)
[2022-05-20] MEDS: INSULIN GLARGINE 100 UNIT/ML SUBCUT SCH (22:00)
[2022-05-21] MEDS: ALBUTEROL/IPRATROPIUM 3 ML NEB RESP TX SCH ×4 (00:27→19:06)
[2022-05-21] MEDS: LEVOTHYROXINE 50 MCG TABLET PO SCH (05:33)
[2022-05-21 05:52] LABS: Basophils % 0.1 % (0.0-0.8); Eosinophils % 0.3 % (0.00-10.9); Hemoglobin 7.9 GM/DL (12.0-16.0); Immature Granulocytes % 1.6 %; Immature Granulocytes Absolute 0.17 #; Lymphocytes # 3.1 10*3/uL (1.4-4.0); Mean Corpuscular HGB Conc 32.9 GM/DL (32-36); Mean Corpuscular Volume 94.1 FL (87-102); Mean Platelet Volume 8.6 FL (9.6-12.0); Monocytes # 0.9 10*3/uL (0.11-0.8); Monocytes % 8.7 % (1.7-12.7); Neutrophils % 59.3 % (38.7-73.9); Platelet Count 268 T/CUMM (130-400); Red Blood Count 2.55 MC/CUMM (3.8-5.5); Red Cell Distribution Width 13.2 % (9.3-17.3); White Blood Count 10.4 T/CUMM (4-12)
[2022-05-21 06:30] LABS: Alanine Aminotransferase 17 U/L (13-56); Albumin 2.2 G/DL (3.4-5.0); Alkaline Phosphatase 54 U/L (45-117); Aspartate Amino Transferase 15 U/L (0-37); Bilirubin,Total < 0.39 MG/DL (0.20-1.00); Blood Urea Nitrogen 43 MG/DL (7-18); Calcium 6.8 MG/DL (8.5-10.1); Carbon Dioxide 22 MMOL/L (21-32); Chloride 115 MMOL/L (98-107); Glucose 68 MG/DL (74-106); Osmolality,Calculated 294.8 MOS/KG (273-304); Potassium 4.4 MMOL/L (3.5-5.1); Sodium 144 MMOL/L (136-145); Total Protein 5.8 G/DL (6.4-8.2)
[2022-05-21] MEDS: CALCIUM CARBONATE CHEW 500 MG TABLET PO SCH ×3 (09:39→21:57)
[2022-05-21] MEDS: MAGNESIUM OXIDE 400 MG TABLET PO SCH (09:40)
[2022-05-21] MEDS: PIOGLITAZONE 15 MG TABLET PO SCH (09:40)
[2022-05-21] MEDS: FERROUS SULFATE 325 MG TABLET PO SCH ×2 (09:40→17:18)
[2022-05-21] MEDS: ASPIRIN EC 81 MG TABLET PO SCH (09:40)
[2022-05-21] MEDS: CYANOCOBALAMIN 500 MCG TABLET PO SCH (09:40)
[2022-05-21] MEDS: GLIMEPIRIDE 2 MG TABLET PO SCH ×2 (09:40→17:15)
[2022-05-21] MEDS: LORATADINE 10 MG TABLET PO SCH (09:40)
[2022-05-21] MEDS: PANTOPRAZOLE 40 MG TABLET PO SCH (09:41)
[2022-05-21] MEDS: amLODIPine 5 MG TABLET PO SCH (09:41)
[2022-05-21] MEDS: ENOXAPARIN 40 MG/0.4 ML SYRINGE SUBCUT SCH (09:41)
[2022-05-21] MEDS: CHOLECALCIFEROL 5,000 UNIT TABLET PO SCH ×2 (09:41→21:57)
[2022-05-21] MEDS: NICOTINE 21 MG/24 HR PATCH TRANSDERM SCH (09:41)
[2022-05-21] MEDS: INSULIN REGULAR 100 UNIT/ML SUBCUT SCH ×4 (09:42→21:57)
[2022-05-21] MEDS: SODIUM CHLORIDE 0.9% 1,000 ML IV SCH (17:18)
[2022-05-21] MEDS: cloNIDine 0.1 MG TABLET PO SCH (21:57)
[2022-05-21] MEDS: ROSUVASTATIN 20 MG TABLET PO SCH (21:57)
[2022-05-21] MEDS: INSULIN GLARGINE 100 UNIT/ML SUBCUT SCH (21:58)
[2022-05-22] MEDS: ALBUTEROL/IPRATROPIUM 3 ML NEB RESP TX SCH ×3 (00:09→13:44)
[2022-05-22] MEDS: DEXTROSE 10% 250 ML BAG IV PRN ×2 (00:19→17:01)
[2022-05-22] MEDS: LEVOTHYROXINE 50 MCG TABLET PO SCH (06:25)
[2022-05-22] MEDS: INSULIN REGULAR 100 UNIT/ML SUBCUT SCH ×2 (09:10→12:41)
[2022-05-22] MEDS: PIOGLITAZONE 15 MG TABLET PO SCH (09:11)
[2022-05-22] MEDS: GLIMEPIRIDE 2 MG TABLET PO SCH (09:11)
[2022-05-22] MEDS: LORATADINE 10 MG TABLET PO SCH (09:20)
[2022-05-22] MEDS: CYANOCOBALAMIN 500 MCG TABLET PO SCH (09:20)
[2022-05-22] MEDS: ASPIRIN EC 81 MG TABLET PO SCH (09:20)
[2022-05-22] MEDS: CALCIUM CARBONATE CHEW 500 MG TABLET PO SCH ×2 (09:20→16:59)
[2022-05-22] MEDS: MAGNESIUM OXIDE 400 MG TABLET PO SCH (09:21)
[2022-05-22] MEDS: amLODIPine 5 MG TABLET PO SCH (09:21)
[2022-05-22] MEDS: FERROUS SULFATE 325 MG TABLET PO SCH ×2 (09:21→17:00)
[2022-05-22] MEDS: ENOXAPARIN 40 MG/0.4 ML SYRINGE SUBCUT SCH (09:22)
[2022-05-22] MEDS: NICOTINE 21 MG/24 HR PATCH TRANSDERM SCH (09:22)
[2022-05-22] MEDS: CHOLECALCIFEROL 5,000 UNIT TABLET PO SCH (09:22)
[2022-05-22] MEDS: PANTOPRAZOLE 40 MG TABLET PO SCH (09:22)
[2022-05-22 10:38] LABS: Basophils % 0.1 % (0.0-0.8); Eosinophils % 0.4 % (0.00-10.9); Hematocrit 25.8 VOL% (35.7-47.0); Hemoglobin 8.6 GM/DL (12.0-16.0); Immature Granulocytes % 0.8 %; Immature Granulocytes Absolute 0.08 #; Lymphocytes # 1.3 10*3/uL (1.4-4.0); Lymphocytes % 12.9 % (21.3-54.2); Mean Corpuscular HGB Conc 33.3 GM/DL (32-36); Mean Corpuscular Volume 93.8 FL (87-102); Mean Platelet Volume 8.5 FL (9.6-12.0); Monocytes # 1.5 10*3/uL (0.11-0.8); Neutrophils % 70.8 % (38.7-73.9); Platelet Count 249 T/CUMM (130-400); Red Blood Count 2.75 MC/CUMM (3.8-5.5); Red Cell Distribution Width 13.3 % (9.3-17.3); White Blood Count 10.2 T/CUMM (4-12)
[2022-05-22 10:54] LABS: Calcium 7.5 MG/DL (8.5-10.1); Osmolality,Calculated 283.5 MOS/KG (273-304); Potassium 4.7 MMOL/L (3.5-5.1)
[2022-05-22 16:31] VITALS: BP 156/59
[2022-05-22] MEDS: SODIUM CHLORIDE 0.9% 1,000 ML IV SCH (17:35)
[2022-05-22] MEDS ORDERED: INSULIN GLARGINE 100 UNIT/ML SUBCUT SCH ×2 (21:00)
[2022-05-23] MEDS ORDERED: GLIMEPIRIDE 2 MG TABLET PO SCH (08:00)
== END 2022-05-22 18:50 | disposition home health service (06) | DRG 191 ==
LOC: N.ED 17:21 → N.EDINP 21:07 → N.2E 21:48
PROVIDERS: ADMIT Family Medicine; ATTEND Internal Medicine